=== PATIENT | male | born 1960 | race Two or more races ===

== ENCOUNTER 2018-07-08 15:37 | Emergency (ER) | payer OTHER ==
[~2018-07-08] VITALS: Ht 165.1 cm; Wt 90.7 kg
[~2018-07-08 15:37] MED LIST: COZAAR50 MG
[2018-07-08] MEDS ORDERED: CLINDAMYCIN HC300 MG PO (17:19)
[2018-07-08] MEDS ORDERED: KETO10TA2 PO (17:19)
[2018-07-08] MEDS ORDERED: INTESTINEX680 M1 PO (17:19)
== END 2018-07-08 17:49 | disposition home or self-care (01) ==
LOC: ER 15:37
DX: K08.89 Other specified disorders of teeth and supporting structures (principal); K04.7 Periapical abscess without sinus

== ENCOUNTER 2019-06-08 05:07 | Emergency (ER) | payer OTHER ==
[~2019-06-08] VITALS: Ht 172.7 cm; Wt 99.8 kg
[~2019-06-08 05:07] MED LIST changes: +CLINDAMYCIN HC300 MG PO; +INTESTINEX680 M1 PO; +KETO10TA2 PO
[2019-06-08] MEDS ORDERED: SIMVASTATIN20 MG (05:24)
[2019-06-08] MEDS ORDERED: NORVASC2.5 M1 (05:25)
[2019-06-08] MEDS ORDERED: TOPROL XL25 M1 (05:25)
[2019-06-08] MEDS ORDERED: LEVOTHYROXINE25 MCG (05:26)
== END 2019-06-08 10:39 | disposition home or self-care (01) ==
LOC: ER 05:07
DX: R55 Syncope and collapse (principal); K52.9 Noninfective gastroenteritis and colitis, unspecified; E86.0 Dehydration; R10.84 Generalized abdominal pain

== ENCOUNTER 2021-05-27 06:00 | Day surgery (SDC) | payer OTHER ==
[~2021-05-27 06:00] MED LIST changes: +FORTAMET500 MG PO; +LEVOTHYROXINE25 MCG; +NORVASC2.5 M1; +SIMVASTATIN20 MG; +TOPROL XL25 M1
[2021-05-27] MEDS ORDERED: COLACE100 MG PO (09:25)
[2021-05-27] MEDS ORDERED: PERCOCET 5-3251 EACH PO (09:25)
== END 2021-05-27 11:40 | disposition home or self-care (01) ==
LOC: CIR.AMB 06:00
PROVIDERS: ATTEND Surgery
DX: K62.4 Stenosis of anus and rectum (principal); K60.1 Chronic anal fissure; Z20.822 Contact with and (suspected) exposure to COVID-19